=== PATIENT | male | born 1990 | race Hispanic/Latino ===

== ENCOUNTER 2024-04-04 07:50 | Emergency (ER) | payer SELFPAY ==
[~2024-04-04] VITALS: Ht 177.8 cm; Wt 77.1 kg
[2024-04-04 08:05] VITALS: BP 130/69; PULSE 83; RESP 16; TEMP 97.7; O2SAT 99
[2024-04-04] MEDS: LORazepam 2 MG/ML 1 ML VIAL IM ONE (08:27)
== END 2024-04-04 09:49 | disposition home or self-care (01) ==
LOC: EDH 07:50
DX: R00.2 Palpitations (principal); R11.0 Nausea; T43.615A Adverse effect of caffeine, initial encounter; Y92.89 Other specified places as the place of occurrence of the external cause
CPT/HCPCS: 99283; 96372; J2060